=== PATIENT | male | born 2000 | race African-American/Black ===

== ENCOUNTER 2019-01-21 23:45 | Emergency (ER) | payer MEDICAID ==
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
[2019-01-22 01:44] VITALS: BP 106/62
== END 2019-01-22 01:44 | disposition home or self-care (01) ==
LOC: ER 23:45
DX: S09.90XA Unspecified injury of head, initial encounter (principal); S01.81XA Laceration without foreign body of other part of head, initial encounter; Y04.0XXA Assault by unarmed brawl or fight, initial encounter; F17.200 Nicotine dependence, unspecified, uncomplicated
CPT/HCPCS: 99284

== ENCOUNTER 2019-04-05 21:52 | Emergency (ER) | payer MEDICAID | END 2019-04-05 23:19 | disposition left against medical advice (07) | LOC: ER 21:52 | DX: Z53.21 Procedure and treatment not carried out due to patient leaving prior to being seen by health care provider (principal) ==